=== PATIENT | female | born 2000 | race Caucasian/White ===

== ENCOUNTER 2023-03-20 16:59 | Emergency (ER) | payer BC, OTHER ==
[2023-03-20 17:51] LABS: #Basophils 0.1 10x3/uL (0.0-0.2); #Eosinphils 0.1 10x3/uL (0.0-0.5); #Monocytes 0.7 10x3/uL (0.0-1.1); #Neutrophils 10.9 10x3/uL (1.5-8.4); %Basophils 0.4 % (0.0-2.0); %Eosinophils 0.8 % (0.0-6.0); %Lymphocytes 16.1 % (18.0-47.0); %Monocytes 5.1 % (0.0-10.0); %Neutrophils 77.2 % (40.0-75.0); Hematocrit 42.8 % (34.9-44.5); Hemoglobin 14.2 g/dL (12.0-15.5); Mean Corpuscular HGB CONC 33.2 g/dL (32.0-36.0); Mean Corpuscular Hemoglobin 28.1 pg (27.0-33.0); Mean Corpuscular Volume 84.6 fl (81.6-98.3); Mean Platelet Volume 9.5 fl (7.4-10.4); Platelet Count 445 10x3/uL (150-450); RBC Distribution Width 13.1 % (11.5-14.5); Red Blood Cell (RBC) Count 5.06 10x6/uL (3.90-5.03)
[2023-03-20 17:54] LABS: BHCG - Serum Negative (NEGATIVE); Pregs Control Background? CLEAR/WHITE (CLR/WHITE); Pregs Control Bar Appear? YES (CONTROL BAR)
[2023-03-20 18:04] LABS: ALT (SGPT) 14 U/L (8-55); AST (SGOT) 15 U/L (5-34); Albumin 4.4 g/dL (3.5-5.0); Alkaline Phosphatase 100 U/L (40-110); Anion Gap 17 mmol/L (10-20); BUN (Urea Nitrogen) 10 mg/dL (7.0-18.7); Bilirubin, Total 0.4 mg/dL (0.2-1.2); Calc. Creatinine Clearance 0 mL/min (70-130); Calcium 9.5 mg/dL (7.8-10.44); Carbon Dioxide 20 mmol/L (22-29); Chloride 106 mmol/L (98-107); Estimated GFR 114; Globulin 3.3 g/dL (2.4-3.5); Glucose 85 mg/dL (70-105); Potassium 3.9 mmol/L (3.5-5.1); Protein, Total 7.7 g/dL (6.0-8.3); Sodium 139 mmol/L (136-145)
[2023-03-20] MEDS ORDERED: Acetaminophen 500 MG TAB ONE (18:08)
[2023-03-20 18:10] LABS: Troponin I Less than 0.010 ng/mL (< 0.028)
== END 2023-03-20 18:21 | disposition home or self-care (01) ==
LOC: CSHERS 16:59
DX: R07.89 Other chest pain (principal); R51.9 Headache, unspecified; I10 Essential (primary) hypertension
CPT/HCPCS: 70450; 71045; 80053; 84484; 84703; 85025; 85379; 93005

== ENCOUNTER 2024-02-19 13:39 | Emergency (ER) | payer BC, OTHER ==
[2024-02-19 13:59] LABS: Bilirubin Neg (Negative); Blood, Urine Negative (Negative); Clarity Clear (Clear); Glucose, Urine (Dipstick) Normal (Negative); Ketone, Urine Negative (Negative); Leukocyte Negative (Negative); Nitrite Negative (Negative); Protein, Urine (Dipstick) 15 mg/dl (Neg-Trace); Urobilinogen Normal mg/dL (Less than 2)
[2024-02-19 14:01] LABS: Pregnancy Test - Urine (BHCG) Negative (Negative); Pregu Control Background? CLEAR/WHITE (CLR/WHITE); Pregu Control Bar Appear? YES (CONTROL BAR)
[2024-02-19 14:13] LABS: Bacteria/HPF 1+ HPF (None Seen); CAUTI Indications for Culture Pelvic or flank pain; RBC/HPF None Seen HPF (0-3); Squamous Epithelial 0-3 HPF (0-3); WBC/HPF 0-3 HPF (0-3)
[2024-02-19 14:14] LABS: Urine Culture Reflex No No
[2024-02-19 14:18] LABS: #Basophils 0.03 10x3/uL (0.0-0.2); #Eosinophils 0.17 10x3/uL (0.0-0.5); #Monocytes 0.55 10x3/uL (0.0-1.1); #Neutrophils 5.74 10x3/uL (1.5-8.4); %Basophils 0.3 % (0.0-2.0); %Eosinophils 1.8 % (0.0-6.0); %Lymphocytes 29.6 % (18.0-47.0); %Monocytes 5.9 % (0.0-10.0); %Neutrophils 62.2 % (40.0-75.0); Hematocrit 42.8 % (34.9-44.5); Hemoglobin 14.1 g/dL (12.0-15.5); Mean Corpuscular HGB CONC 32.9 g/dL (32.0-36.0); Mean Corpuscular Hemoglobin 28.8 pg (27.0-33.0); Mean Corpuscular Volume 87.5 fL (81.6-98.3); Mean Platelet Volume 9.4 fL (7.4-10.4); Platelet Count 381 10x3/uL (150-450); RBC Distribution Width 13.8 % (11.5-14.5); Red Blood Cell (RBC) Count 4.89 10x6/uL (3.90-5.03); White Blood Cell (WBC) Count 9.3 10x3/uL (3.5-10.5)
[2024-02-19] MEDS ORDERED: Ketorolac Tromethamine 30 MG (1 mL) VIAL ONE (14:24)
[2024-02-19 14:25] LABS: BHCG - Serum Negative (NEGATIVE); Pregs Control Background? CLEAR/WHITE (CLR/WHITE); Pregs Control Bar Appear? YES (CONTROL BAR)
[2024-02-19 14:30] LABS: ALT (SGPT) 21 U/L (8-55); AST (SGOT) 16 U/L (5-34); Albumin 3.8 g/dL (3.5-5.0); Alkaline Phosphatase 69 U/L (40-110); Anion Gap 13 mmol/L (10-20); BUN (Urea Nitrogen) 8 mg/dL (7.0-18.7); Bilirubin, Total 0.4 mg/dL (0.2-1.2); Calc. Creatinine Clearance 0 mL/min (70-130); Calcium 9.1 mg/dL (7.8-10.44); Carbon Dioxide 22 mmol/L (22-29); Chloride 107 mmol/L (98-107); Estimated GFR 107; Globulin 3.5 g/dL (2.4-3.5); Glucose 92 mg/dL (70-105); Lipase 32 U/L (8-78); Potassium 3.7 mmol/L (3.5-5.1); Protein, Total 7.3 g/dL (6.0-8.3); Sodium 138 mmol/L (136-145)
== END 2024-02-19 15:49 | disposition home or self-care (01) ==
LOC: CSHERS 13:39
DX: R10.11 Right upper quadrant pain (principal)
CPT/HCPCS: 76705; 80053; 81001; 81025; 83690; 84703; 85025; 96374; J1885

== ENCOUNTER 2024-06-08 09:08 | Day surgery (SDC) | payer BC ==
[2024-06-04 10:39] VITALS: BMI 36.6
[2024-06-08] MEDS ORDERED: Indocyanine Green 25 MG/10 ML VIAL ONE (09:50)
[2024-06-08] MEDS ORDERED: Scopolamine 1 mg/72 hour Patch ONE (10:12)
[2024-06-08] MEDS ORDERED: Midazolam HCl 2 mg/2 ml Vial ONE ×2 (10:12→11:46)
[2024-06-08] MEDS ORDERED: Bupivacaine HCl 0.5%/Epinephrine 1:200,000/PF 30 ml Vial ONE (10:46)
[2024-06-08] MEDS ORDERED: Bupivacaine/Epinephrine 0.25% 30 ML VIAL ONE (11:11)
[2024-06-08] MEDS ORDERED: CEFAZOLIN 2 GM VIAL ONE (11:25)
[2024-06-08] MEDS ORDERED: Dexamethasone 4 mg/ml Vial ONE (11:58)
[2024-06-08] MEDS ORDERED: Fentanyl 100 MCG/2 ML VIAL ONE ×2 (11:58→12:25)
[2024-06-08] MEDS ORDERED: Ondansetron PF 4 MG/2 ML Vial ONE ×2 (11:58→13:18)
[2024-06-08] MEDS ORDERED: Ketorolac Tromethamine 30 MG (1 mL) VIAL ONE (12:32)
[2024-06-08] MEDS ORDERED: SUGAMMADEX SODIUM 200 MG/2 ML VIAL ONE (12:32)
[2024-06-08] MEDS ORDERED: Rocuronium Bromide 10 MG/ML (10ML VIAL) ONE (12:33)
[2024-06-08] MEDS ORDERED: Lidocaine 4% PF 5 ML AMP ONE (12:33)
[2024-06-08] MEDS ORDERED: Lidocaine 2% PF 5 ML VIAL ONE (12:33)
[2024-06-08] MEDS ORDERED: PROPOFOL 20 ML ONE (12:33)
[2024-06-08] MEDS ORDERED: Morphine 2 MG/ML VIAL ONE (13:25)
[2024-06-08] MEDS ORDERED: Promethazine HCl 25 MG/ML VIAL ONE (13:28)
[2024-06-08] MEDS ORDERED: HYDROcodone/Acetaminophen 5/325 mg Tablet ONE (14:10)
== END 2024-06-08 14:45 | disposition home or self-care (01) ==
LOC: CSHSDC 09:08
PROVIDERS: ATTEND Surgery
PROC: 0FT44ZZ Resection of Gallbladder, Percutaneous Endoscopic Approach (ICD-10-PCS; principal; 2024-06-08)
DX: K81.1 Chronic cholecystitis (principal); F41.9 Anxiety disorder, unspecified; F32.A Depression, unspecified; E66.9 Obesity, unspecified; Z68.36 Body mass index [BMI] 36.0-36.9, adult; Z79.899 Other long term (current) drug therapy
CPT/HCPCS: 88304; C1889; J1100; J1885; J2250; J2272; J2405; J2550; J2704; J3010; S2900

== ENCOUNTER 2024-12-04 09:17 | Emergency (ER) | payer BC ==
[2024-12-04] MEDS ORDERED: Ondansetron PF 4 MG/2 ML Vial ONE (09:48)
[2024-12-04] MEDS ORDERED: Ketorolac Tromethamine 30 MG (1 mL) VIAL ONE (09:49)
[2024-12-04 10:17] LABS: #Basophils 0.03 10x3/uL (0.0-0.2); #Eosinophils 0.14 10x3/uL (0.0-0.5); #Monocytes 0.45 10x3/uL (0.0-1.1); #Neutrophils 10.54 10x3/uL (1.5-8.4); %Basophils 0.2 % (0.0-2.0); %Eosinophils 1.1 % (0.0-6.0); %Lymphocytes 10.8 % (18.0-47.0); %Monocytes 3.6 % (0.0-10.0); %Neutrophils 83.9 % (40.0-75.0); Hematocrit 44.5 % (34.9-44.5); Hemoglobin 14.7 g/dL (12.0-15.5); Mean Corpuscular Hemoglobin 29.1 pg (27.0-33.0); Mean Corpuscular Volume 87.9 fL (81.6-98.3); Platelet Count 375 10x3/uL (150-450); Red Blood Cell (RBC) Count 5.06 10x6/uL (3.90-5.03); White Blood Cell (WBC) Count 12.57 10x3/uL (3.5-10.5)
[2024-12-04 10:37] LABS: BHCG - Serum Negative (NEGATIVE); Pregs Control Background? CLEAR/WHITE (CLR/WHITE); Pregs Control Bar Appear? YES (CONTROL BAR)
[2024-12-04 10:44] LABS: ALT (SGPT) 11 U/L (Less than 34); AST (SGOT) 17 U/L (11-34); Albumin 3.9 g/dL (3.1-4.5); Alkaline Phosphatase 70 U/L (40-110); Anion Gap 13 mmol/L (10-20); BUN (Urea Nitrogen) 12 mg/dL (7.0-18.7); Bilirubin, Total 0.4 mg/dL (0.3-1.2); Calc. Creatinine Clearance 0 mL/min (70-130); Calcium 8.8 mg/dL (7.8-10.44); Carbon Dioxide 22 mmol/L (22-29); Chloride 107 mmol/L (98-107); Globulin 3.7 g/dL (2.4-3.5); Glucose 93 mg/dL (70-105); Lipase 17 U/L (8-78); Potassium 3.9 mmol/L (3.5-5.1); Sodium 138 mmol/L (136-145)
[2024-12-04] MEDS ORDERED: Iopamidol 370 76% 100 ML VIAL ONE (11:39)
[2024-12-04 11:59] LABS: Glucose, Urine (Dipstick) Normal (Negative); Leukocyte 100 (Negative); Protein, Urine (Dipstick) Negative (Neg-Trace); Specific Gravity, Urine 1.010 (1.005-1.030)
[2024-12-04 12:08] LABS: Bacteria/HPF 3+ HPF (None Seen); CAUTI Indications for Culture Pelvic or flank pain; RBC/HPF 0-3 HPF (0-3)
[2024-12-04 12:09] LABS: Urine Culture Reflex No No
== END 2024-12-04 13:30 | disposition home or self-care (01) ==
LOC: CSHERS 09:17
DX: K63.89 Other specified diseases of intestine (principal)
CPT/HCPCS: 74177; 80053; 81001; 83690; 84703; 85025; 96361; 96374; 96375; J1885; J2405